=== PATIENT | male | born 1965 | race Caucasian/White ===

== ENCOUNTER 2024-06-17 11:03 | Emergency (ER) | payer MEDICARE, SELFPAY ==
--- NOTE | ~2024-06-17 | CT_ITS ---
CT brain wo con Ordering provider: Dayne Calderon MD History: 59 years Male with . fall . Comparison: None. Technique: CT of the head without contrast. Radiation reduction technique utilized. The dose-length product was 605.33 mGy-cm. FINDINGS: BRAIN PARENCHYMA AND CSF SPACES: Mild leukoaraiosis and diffuse cortical atrophy. Mild atheromatous d isease. No midline shift, mass effect or hemorrhage. The brain parenchyma and CSF spaces are otherwi se normal. VISUALIZED PARANASAL SINUSES: Well aerated. MASTOIDS: Well aerated. BONES: The bones appear intact. SOFT TISSUES: Visualized nasopharynx is normal. Left is small scalp hematoma otherwise, Superficial soft tissues are normal. IMPRESSION: No acute intracranial findings. Reviewed, dictated and finalized at location A. IER APPRENTICE
--- NOTE | ~2024-06-17 | XR_ITS ---
XR ankle LT min 3V Ordering provider: Dayne Calderon MD History: . fall on ice, left ankle pain . Comparison: None. FINDINGS: BONES: No acute fracture or dislocation. JOINT SPACES: Severe osteoarthritic changes. Cystic changes in the talus bone. Osteoarthritic changes of the subtalar joint. Calcaneal spur. Osteoarthritic changes of the talonavicular joint. SOFT TISSUES: Normal. IMPRESSION: No acute osseous abnormality left ankle. Reviewed, dictated and finalized at location A. CTOR INTEGRATED
[2024-06-17 11:14] VITALS: BP 160/88; PULSE 96; RESP 18; TEMP 36.4; O2SAT 98
--- NOTE | 2024-06-17 12:36 | ED_ITS ---
HPI - Fall General Chief Complaint: Fall Stated Complaint: fall Time Seen by Provider: 06/17/24 12:19 History of Present Illness HPI Narrative: Patient is a 59-year-old male who presents ER with pain in his left ankle. Slip and fall last night on ice. Struck his head but no LOC. No blood thinners. Had trouble bearing weight on his left foot initially. No swelling. Reports pain throughout the ankle. Has not taking pain medication. Related Data Allergies Allergy/AdvReac Type Severity Reaction Status Date / Time No Known Allergies Allergy Unverified 10/06/15 08:41 Review of Systems Constitutional: Constitutional: Reports no additional constitutional complaints Musculoskeletal: Musculoskeletal: Denies back pain, Reports arthralgias, Denies joint swelling and Denies muscle cramps Integumentary/Breasts: Skin/Breast: Reports system reviewed and no additional complaints, except as docu Neurologic: Reports system reviewed and no additional complaints, except as documented PMFSH Past Medical History Medical History (Updated 06/17/24 @ 12:46 by Dayne Calderon MD) Hyperlipidemia, unspecified Essential (primary) hypertension Surgical History Surgical History (Updated 06/17/24 @ 12:46 by Dayne Calderon MD) History of ankle surgery Family History Family History (Updated 01/28/14 @ 07:13 by DOCTOR UNKNOWN) Father Hypertension Social History Social History Smoking status: Former smoker Smoking end date: 06/03/00 Alcohol intake: current Exam Narrative: GENERAL: Well-appearing, well-nourished, and in no acute distress. HEAD: Normocephalic, atraumatic. ENT: Mucous membranes moist. EXTREMITIES: Normal range of motion. No edema. No significant joint line tenderness or swelling to the left ankle. SKIN: Warm, dry, no rash. NEURO: Alert and oriented x3. PSYCH: Normal mood and affect. Course Course Emergency Course: Imaging without acute process. Chronic changes left ankle. I have educated patient on ankle bracing and shown him appropriate ankle braces that can be purchased at local pharmacies. Vital Signs Vital signs: Vital Signs Temperature 97.6 F 06/17/24 11:14 Pulse Rate 96 06/17/24 11:14 Respiratory Rate 18 06/17/24 11:14 Blood Pressure 160/88 H 06/17/24 11:14 Pulse Oximetry 98 06/17/24 11:14 Oxygen Delivery Room Air 06/17/24 11:14 Temperature 97.6 F 06/17/24 11:14 Pulse Rate 96 06/17/24 11:14 Respiratory Rate 18 06/17/24 11:14 Blood Pressure 160/88 H 06/17/24 11:14 Pulse Oximetry 98 06/17/24 11:14 Oxygen Delivery Room Air 06/17/24 11:14 MDM - Fall Imaging Data Radiologist's impression: ITS Impressions Head CT 06/17/24 12:11 IMPRESSION: No acute intracranial findings. Ankle X-Ray 06/17/24 12:27 IMPRESSION: No acute osseous abnormality left ankle. Discharge Plan Discharge Clinical Impression: Ankle sprain Patient Disposition: Home, Self-Care Condition: Stable Instructions: Ankle Sprain (ED) Additional Instructions: By supportive/compressive ankle wrap and brace to help with your discomfort. Take anti-inflammatory medications to treat your pain. Return the ER if you suffered additional injury. Patient Language: Mohawk Prescriptions: New naproxen 375 mg tablet 375 mg PO BID Qty: 14 0RF Follow-up/Referrals: PHYSICIAN,BINDERY OPERATOR [Primary Care Provider] - Randal Burgess MD [Physician] - 1 Week
== END 2024-06-17 12:54 | disposition home or self-care (01) ==
PROVIDERS: Emergency Provider Emergency Medicine
DX: S93.402A Sprain of unspecified ligament of left ankle, initial encounter (principal); W00.0XXA Fall on same level due to ice and snow, initial encounter
CPT/HCPCS: 70450; 73610; 99284